=== PATIENT | male | born 1935 | race Caucasian/White ===

== ENCOUNTER → 2018-11-16 | Outpatient (CLI) | payer MEDICARE, OTHER ==
--- NOTE | 2018-11-16 19:10 | RADRPT ---
Echocardiogram Report Patient Name: MARCY VALLEPatient ID: [id number] : 1935 (83y 2m)Study Date: 11/16/2018 1:03:57 PM Gender: MAccession #: [id number] Tech: MA Location: Ref.Physician: DE STATON Height(Cm): BSA: Weight(Kg): Quality: Technically Difficult StudyAccount #: Procedures: Echocardiographic Report: Transthoracic echocardiogram with complete 2D, M-Mode, and doppler examination. Indications: Atherosclerosis heart disease. Measurements: 2D/M Mode Doppler Measurement Value Normal Range Measurement Value Normal Range LVIDd 2D 4.0 [ 4.2 - 5.8 ] cm AV Peak Beni 1.3 [ 100.0 - 170.0 ] cm/sec LVIDs 2D 2.5 [ 2.5 - 4.0 ] cm AV Peak PG 7.0 [ 2.0 - 9.0 ] mmHg LVPWd 2D 1.1 [ 0.6 - 1.0 ] cm LVOT Peak Beni 0.8 [ 70.0 - 110.0 ] cm/sec IVSd 2D 1.2 [ 0.6 - 1.0 ] cm LVOT Peak PG 2.0 [ 2.0 - 6.0 ] mmHg IVS/LVPW 2D 1.1 ratio Lat E` Beni 0.1 [ 10.0 - 15.0 ] cm/sec AoR Diam 2D 3.2 [ 2.6 - 3.4 ] cm TR Peak Beni 2.3 [ 100.0 - 280.0 ] cm/sec LA/Ao 2D 1 ratio TR Peak PG 21.0 mmHg LA Dimen 2D 3.0 [ 3.0 - 4.0 ] cm RVSP 24.0 [ 10.0 - 36.0 ] mmHg RA Pressure 3.0 mmHg Findings: Left Ventricle: Normal left ventricular cavity size. Mild concentric left ventricular hypertrophy. Mild global left ventricular systolic dysfunction. Ejection fraction is visually estimated at 45-50 %. Right Ventricle: Normal right ventricular size. Normal right ventricular systolic function. Left Atrium: The left atrium is normal in size. Right Atrium: Not well visualized. Mitral Valve: Mitral valve leaflets appear mildly thickened. Mild mitral annular calcification. Trace mitral regurgitation. Aortic Valve: No significant aortic stenosis or insufficiency. Aortic cusps appear mildly calcified. Tricuspid Valve: Estimated peak PA systolic pressure 24 mmHg. There is trace to mild tricuspid regurgitation. Pulmonic Valve: Pulmonic valve not well visualized. Pericardium: Normal pericardium with no significant pericardial effusion. Aorta: Normal aortic root. IVC: Normal size and normal respiratory collapse consistent with normal right atrial pressure. Conclusions: TDE with very limited views. Normal left ventricular cavity size. Mild concentric left ventricular hypertrophy. Mild global left ventricular systolic dysfunction. Ejection fraction is visually estimated at 45-50 %. Mitral valve leaflets appear mildly thickened. Mild mitral annular calcification. Trace mitral regurgitation. Estimated peak PA systolic pressure 24 mmHg. There is trace to mild tricuspid regurgitation. Electronically Signed By: De Staton 2018-11-16 19:09:33 PST
== END | disposition home or self-care (01) ==
LOC: EKG 12:53
PROVIDERS: ATTEND Internal Medicine
DX: I70.90 Unspecified atherosclerosis (principal)
CPT/HCPCS: 93306